=== PATIENT | female | born 1990 | race Two or more races ===

== ENCOUNTER 2017-05-10 15:57 | Emergency (ER) | payer MEDICAID ==
[~2017-05-10] VITALS: Ht 152.4 cm; Wt 75.0 kg
[2017-05-10 16:04] VITALS: BP 140/86
== END 2017-05-11 02:00 | disposition left against medical advice (07) ==
LOC: ER 05-11 01:27
DX: Z53.21 Procedure and treatment not carried out due to patient leaving prior to being seen by health care provider (principal)